=== PATIENT | male | born 1960 | race Caucasian/White ===

== ENCOUNTER 2017-03-25 12:37 | Emergency (ER) | payer MEDICAID ==
[~2017-03-25] VITALS: Ht 177.8 cm; Wt 70.4 kg
[2017-03-25 12:41] VITALS: BP 139/85
[2017-03-25] MEDS ORDERED: LIDOCAINE 1%, 20ML ONE (13:04)
== END 2017-03-25 13:31 | disposition home or self-care (01) ==
LOC: ED 13:25
DX: L02.411 Cutaneous abscess of right axilla (principal); L73.2 Hidradenitis suppurativa; Z87.891 Personal history of nicotine dependence
CPT/HCPCS: 99283

== ENCOUNTER 2017-06-02 18:31 | Emergency (ER) | payer MEDICAID ==
[~2017-06-02] VITALS: Ht 180.3 cm; Wt 68.1 kg
[2017-06-02 18:34] VITALS: BP 151/87
== END 2017-06-02 19:34 | disposition home or self-care (01) ==
LOC: ED 19:28
DX: K02.9 Dental caries, unspecified (principal); K08.89 Other specified disorders of teeth and supporting structures
CPT/HCPCS: 99283

== ENCOUNTER 2018-01-27 14:47 | Emergency (ER) | payer SELFPAY ==
[~2018-01-27] VITALS: Ht 177.8 cm; Wt 73.5 kg
[2018-01-27 15:00] VITALS: BP 131/84
[2018-01-27] MEDS ORDERED: LIDOCAINE-MPF 1%, 5ML INFIL ONE (15:30)
== END 2018-01-27 15:45 | disposition home or self-care (01) ==
LOC: ED 15:30
DX: L73.2 Hidradenitis suppurativa (principal)
CPT/HCPCS: 99283

== ENCOUNTER 2018-03-08 17:41 | Emergency (ER) | payer MEDICAID, OTHER ==
[~2018-03-08] VITALS: Ht 177.8 cm; Wt 71.7 kg
[2018-03-08 17:42] VITALS: BP 139/86
[2018-03-08] MEDS ORDERED: OLAN2.5T3 PO (18:53)
[2018-03-08] MEDS ORDERED: LIDOCAINE-MPF 2% ,5ML ONE (19:18)
[2018-03-08] MEDS ORDERED: LIDOCAINE-MPF 1%, 5ML INFIL ONE (19:30)
== END 2018-03-08 19:43 | disposition home or self-care (01) ==
LOC: ED 19:40
DX: L02.411 Cutaneous abscess of right axilla (principal); L02.412 Cutaneous abscess of left axilla
CPT/HCPCS: 99283

== ENCOUNTER 2020-07-05 13:22 | Emergency (ER) | payer MEDICAID ==
[~2020-07-05] VITALS: Ht 177.8 cm; Wt 78.4 kg
[~2020-07-05 13:22] MED LIST: OLAN2.5T3 PO
[2020-07-05 13:31] VITALS: BP 136/87
[2020-07-05] MEDS ORDERED: IBUPROFEN 800 MG TABLET ONE (14:44)
--- NOTE | 2020-07-05 14:49 | NUR ---
patient medicated for pain.
[2020-07-05] MEDS ORDERED: IBUPROFEN 800 MG TABLET PO ONE (15:00)
== END 2020-07-05 15:08 | disposition home or self-care (01) ==
LOC: ED 14:44
DX: K08.89 Other specified disorders of teeth and supporting structures (principal)
CPT/HCPCS: 99283